=== PATIENT | male | born 1950 | race Caucasian/White ===

== ENCOUNTER → 2020-07-10 | Day surgery (SDC) | payer MEDICARE, BC ==
[2020-07-07 14:12] VITALS: BMI 28.6
[~2020-07-10] MED LIST: PROPOFOL 20 ML ONE
== END ==
LOC: CCL 05:44
PROVIDERS: ATTEND Internal Medicine Cardiovascular Disease
PROC: 5A2204Z Restoration of Cardiac Rhythm, Single (ICD-10-PCS; principal; 2020-07-10)
DX: I48.19 Other persistent atrial fibrillation (principal); I10 Essential (primary) hypertension; E78.5 Hyperlipidemia, unspecified; E03.9 Hypothyroidism, unspecified; I69.320 Aphasia following cerebral infarction; I49.5 Sick sinus syndrome; Z79.01 Long term (current) use of anticoagulants; Z79.899 Other long term (current) drug therapy
CPT/HCPCS: 92960; 93005; 93010; J2704

== ENCOUNTER 2020-08-07 08:27 | Outpatient (CLI) | payer MEDICARE, BC ==
[2020-08-07 09:43] LABS: Hemoglobin 13.7 g/dL (13.5-17.5); Mean Corpuscular Hemoglobin 31.5 pg (27.0-33.0); Mean Corpuscular Volume 89.9 fl (81.2-95.1); Mean Platelet Volume 9.2 fl (7.4-10.4); Platelet Count 282 10x3/uL (150-450); RBC Distribution Width 12.3 % (11.5-14.5); Red Blood Cell (RBC) Count 4.35 10x6/uL (4.32-5.72); White Blood Cell (WBC) Count 5.8 10x3/uL (3.5-10.5)
[2020-08-07 10:06] LABS: ALT (SGPT) 13 U/L (8-55); AST (SGOT) 23 U/L (5-34); Albumin 4.3 g/dL (3.4-4.8); Alkaline Phosphatase 51 U/L (40-110); Anion Gap 15 mmol/L (10-20); BUN (Urea Nitrogen) 8 mg/dL (8.4-25.7); Bilirubin, Total 0.5 mg/dL (0.2-1.2); Calc. Creatinine Clearance 0 mL/min (70-130); Carbon Dioxide 31 mmol/L (23-31); Chloride 85 mmol/L (98-107); Globulin 2.5 g/dL (2.4-3.5); Glucose 90 mg/dL (80-115); Potassium 3.6 mmol/L (3.5-5.1); Protein, Total 6.8 g/dL (5.8-8.1); Sodium 127 mmol/L (136-145)
[2020-08-07 10:35] LABS: INR-International Normal Ratio 1.1; Prothrombin Time 11.8 sec (9.5-12.1)
[2020-08-07 17:45] LABS: SARS-CoV-2 PCR by NAA Not Detected (NotDetected)
== END 2020-08-07 08:28 | disposition home or self-care (01) ==
LOC: LABBT 08:27
PROVIDERS: ATTEND Internal Medicine Cardiovascular Disease
DX: Z01.812 Encounter for preprocedural laboratory examination (principal); I48.19 Other persistent atrial fibrillation; Z20.822 Contact with and (suspected) exposure to COVID-19
CPT/HCPCS: 80053; 85027; 85610; U0003; U0005; 87635

== ENCOUNTER 2020-08-10 06:15 | Observation (INO) | payer MEDICARE, BC ==
[2020-08-10] MEDS ORDERED: Fentanyl 100 MCG/2 ML VIAL ONE (08:40)
[2020-08-10] MEDS ORDERED: Heparin 10,000 UNITS/ 10 ML VIAL ONE ×2 (08:41→10:56)
[2020-08-10] MEDS ORDERED: Lidocaine 1% (PF) 30 ML VIAL ONE (08:44)
[2020-08-10] MEDS ORDERED: HYDROcodone/Acetaminophen 5/325 mg Tablet PO PRN (09:10)
[2020-08-10] MEDS ORDERED: Acetaminophen 500 MG TAB PO PRN (09:12)
[2020-08-10] MEDS ORDERED: Calcium Carbonate 500 MG ChewTAB PO PRN (09:12)
[2020-08-10] MEDS ORDERED: hydrALAZINE 20 MG/ML VIAL SLOW IVP PRN (09:12)
[2020-08-10] MEDS ORDERED: Benzonatate 100 MG CAP PO PRN (09:12)
[2020-08-10] MEDS ORDERED: Ondansetron PF 4 MG/2 ML Vial IVP PRN (09:12)
[2020-08-10] MEDS ORDERED: Cepastat Lozenges 1 LOZ PO PRN (09:12)
[2020-08-10] MEDS ORDERED: Heparin 25,000 units/D5W 500 ML ONE (09:43)
[2020-08-10] MEDS ORDERED: Lidocaine 1% PF 5 ML VIAL ONE (09:57)
[2020-08-10] MEDS ORDERED: Ondansetron PF 4 MG/2 ML Vial ONE (09:57)
[2020-08-10] MEDS ORDERED: Rocuronium Bromide 10 MG/ML (10ML VIAL) ONE (09:57)
[2020-08-10] MEDS ORDERED: Dexamethasone 20 MG/5 ML VIAL ONE (09:57)
[2020-08-10] MEDS ORDERED: PHENYLEPHRINE-NS 100 MCG/ML 10 ML SYRINGE ONE (09:57)
[2020-08-10] MEDS ORDERED: PROPOFOL 200 MG/20 ML VIAL ONE (09:57)
[2020-08-10] MEDS ORDERED: ePHEDrine 50 MG/ML VIAL ONE (09:57)
[2020-08-10] MEDS ORDERED: SUGAMMADEX SODIUM 200 MG/2 ML VIAL ONE (11:53)
[2020-08-10] MEDS ORDERED: Protamine Sulfate 50 MG/5 ML VIAL ONE (11:53)
[2020-08-10] MEDS ORDERED: Rivaroxaban 10 MG TAB PO SCH (17:00)
[2020-08-10 17:44] VITALS: BMI 28.3
[2020-08-10] MEDS: Mirtazapine 30 MG TAB PO SCH (20:06)
[2020-08-10] MEDS: Flecainide 50 MG TAB PO SCH (20:07)
[2020-08-10] MEDS ORDERED: Divalproex Sodium 250 MG (DR) TAB PO SCH (21:00)
[2020-08-10] MEDS ORDERED: clonazePAM 1 MG TAB PO SCH (21:00)
[2020-08-11 04:53] LABS: Hemoglobin 11.6 g/dL (14.0-18.0); Platelet Count 210 thou/uL (130-400)
[2020-08-11] MEDS ORDERED: Levothyroxine Sodium 125 MCG TAB PO SCH (06:00)
[2020-08-11 08:02] VITALS: BP 125/74; TEMP 98.1
[2020-08-11] MEDS: Flecainide 50 MG TAB PO SCH (08:02)
[2020-08-11] MEDS ORDERED: Gabapentin 100 MG CAP PO SCH (09:00)
[2020-08-11] MEDS ORDERED: FLU VACC QS2020-21(65YR UP)/PF 240 MCG/0.7 ML SYRINGE IM ONE (09:00)
== END 2020-08-11 10:49 | disposition home or self-care (01) ==
LOC: CCL 06:15 → 2NO 12:46
PROVIDERS: ADMIT Internal Medicine Cardiovascular Disease; ATTEND Internal Medicine Cardiovascular Disease
PROC: 02583ZZ Destruction of Conduction Mechanism, Percutaneous Approach (ICD-10-PCS; principal; 2020-08-10)
PROC: 4A023FZ Measurement of Cardiac Rhythm, Percutaneous Approach (ICD-10-PCS; 2020-08-10)
PROC: 4A0234Z Measurement of Cardiac Electrical Activity, Percutaneous Approach (ICD-10-PCS; 2020-08-10)
PROC: 02K83ZZ Map Conduction Mechanism, Percutaneous Approach (ICD-10-PCS; 2020-08-10)
DX: I48.0 Paroxysmal atrial fibrillation (principal); R60.9 Edema, unspecified; E87.1 Hypo-osmolality and hyponatremia; Z79.01 Long term (current) use of anticoagulants; Z79.899 Other long term (current) drug therapy
CPT/HCPCS: 76942; 85014; 85018; 85049; 85347; 92960; 93005; 93613; 93656; 93657; 93662; C1730; C1732; C1753; C1894; C2630; 36415; G0378; J1100; J1644; J2001; J2405; J2704; J2720; J3010; J3490

== ENCOUNTER 2020-09-20 10:27 | Day surgery (SDC) | payer MEDICARE, BC ==
[2020-09-20 13:29] LABS: Pleural Fluid, Amylase Less than 30 U/L (Not Available); Pleural Fluid, Glucose 93 mg/dL; Pleural Fluid, LDH 99 U/L (Not Available); Pleural Fluid, Protein 2.4 g/dL
[2020-09-20 14:45] LABS: RBC Count-Automated (BF) 758 /cu.mm; WBC/Nucleated-Auto (BF) 715 uL
[2020-09-20 15:01] LABS: Body Fluid Source Pleural Fluid; Tube # EDTA
[2020-09-20 15:02] LABS: BF Color Yellow; Clarity Hazy (Clear)
[2020-09-20 15:11] LABS: BF Segmented Neutrophils 12 %; Cell Count Non Hematic 44 %; Lymphocytes 44 %
== END 2020-09-20 13:00 | disposition home or self-care (01) ==
LOC: SDC/OP 10:27
PROVIDERS: ATTEND Internal Medicine Critical Care Medicine
PROC: 0W9B3ZZ Drainage of Left Pleural Cavity, Percutaneous Approach (ICD-10-PCS; principal; 2020-09-20)
DX: J90 Pleural effusion, not elsewhere classified (principal); E03.9 Hypothyroidism, unspecified; N40.0 Benign prostatic hyperplasia without lower urinary tract symptoms; R56.9 Unspecified convulsions; I42.9 Cardiomyopathy, unspecified; Z79.01 Long term (current) use of anticoagulants; Z79.899 Other long term (current) drug therapy
CPT/HCPCS: 32554; 82150; 82945; 83615; 84157; 85060; 87070; 87205; 88112; 88305; 89051; J1642

== ENCOUNTER 2021-01-31 09:59 | Inpatient (IN) | payer MEDICARE, BC ==
[~2021-01-31 09:59] MED LIST changes: +Iopamidol-370 76% 500 ML 1 ML ONE; -PROPOFOL 20 ML ONE
[2021-01-31 10:52] LABS: #Basophils 0.1 thou/uL (0.0-0.2); #Eosinphils 0.3 thou/uL (0.0-0.7); #Lymphocytes 1.5 thou/uL (1.20-3.40); #Monocytes 0.8 thou/uL (0.11-0.59); #Neutrophils 4.8 thou/uL (1.40-6.50); %Eosinophils 3.4 % (0.0-10.0); %Lymphocytes 20.1 % (21.0-51.0); %Monocytes 11.4 % (0.0-10.0); %Neutrophils 64.1 % (42.0-75.0); Mean Corpuscular HGB CONC 35.5 g/dL (32.0-36.0); Mean Corpuscular Volume 98.4 fL (78.0-98.0); Mean Platelet Volume 6.8 fL (7.4-10.4); Platelet Count 240 thou/uL (130-400); RBC Distribution Width 11.4 % (11.5-14.5); Red Blood Cell (RBC) Count 3.99 mill/uL (4.70-6.10); White Blood Cell (WBC) Count 7.4 thou/uL (4.8-10.8)
[2021-01-31 11:07] LABS: INR-International Normal Ratio 1.1; Prothrombin Time 14.1 sec (12.0-14.7)
[2021-01-31 11:21] LABS: ALT (SGPT) 10 U/L (8-55); AST (SGOT) 16 U/L (5-34); Albumin 4.2 g/dL (3.4-4.8); Alkaline Phosphatase 63 U/L (40-110); Anion Gap 16 mmol/L (10-20); BUN (Urea Nitrogen) 9 mg/dL (8.4-25.7); Bilirubin, Total 0.5 mg/dL (0.2-1.2); Calc. Creatinine Clearance 0 mL/min (70-130); Calcium 9.4 mg/dL (7.8-10.44); Carbon Dioxide 23 mmol/L (23-31); Chloride 98 mmol/L (98-107); Globulin 2.6 g/dL (2.4-3.5); Glucose 109 mg/dL (80-115); Protein, Total 6.8 g/dL (5.8-8.1); Sodium 133 mmol/L (136-145)
[2021-01-31 11:59] LABS: CKMB 2.9 ng/mL (0-6.6)
[2021-01-31] MEDS ORDERED: Aspirin Chewable 81 MG TAB ONE (12:21)
[2021-01-31 14:46] LABS: SARS-CoV-2 NAA Rapid Test Not Detected (NotDetected)
[2021-01-31] MEDS ORDERED: Bisacodyl 10 MG SUPP PR PRN (18:37)
[2021-01-31] MEDS ORDERED: Acetaminophen 325 MG TAB PO PRN (18:37)
[2021-01-31] MEDS ORDERED: Ondansetron PF 4 MG/2 ML Vial IVP PRN (18:37)
[2021-01-31] MEDS ORDERED: Acetaminophen 650 MG Suppository PR PRN (18:37)
[2021-01-31] MEDS ORDERED: Labetalol HCl 100 MG/20 ML VIAL SLOW IVP PRN (18:37)
[2021-01-31] MEDS ORDERED: hydrALAZINE 20 MG/ML VIAL SLOW IVP PRN (18:37)
[2021-01-31 19:49] LABS: Troponin I 0.599 ng/mL (< 0.028)
[2021-01-31] MEDS ORDERED: Atorvastatin Calcium 20 MG TAB PO SCH (21:00)
[2021-01-31] MEDS: Furosemide 20 MG TAB PO SCH (22:00)
[2021-01-31] MEDS: Divalproex Sodium DR 500 MG TAB PO SCH (22:00)
[2021-01-31] MEDS: Flecainide 50 MG TAB PO SCH (22:00)
[2021-02-01 01:00] VITALS: BMI 20.9
[2021-02-01 05:55] LABS: #Eosinphils 0.2 thou/uL (0.0-0.7); #Lymphocytes 1.6 thou/uL (1.20-3.40); #Monocytes 0.9 thou/uL (0.11-0.59); #Neutrophils 4.6 thou/uL (1.40-6.50); %Basophils 0.5 % (0.0-1.0); %Eosinophils 2.1 % (0.0-10.0); %Lymphocytes 22.4 % (21.0-51.0); %Monocytes 11.7 % (0.0-10.0); %Neutrophils 63.3 % (42.0-75.0); Mean Corpuscular Hemoglobin 34.3 pg (27.0-31.0); Mean Corpuscular Volume 98.1 fL (78.0-98.0); Platelet Count 240 thou/uL (130-400); RBC Distribution Width 11.4 % (11.5-14.5); Red Blood Cell (RBC) Count 4.08 mill/uL (4.70-6.10); White Blood Cell (WBC) Count 7.3 thou/uL (4.8-10.8)
[2021-02-01] MEDS: Levothyroxine Sodium 125 MCG TAB PO SCH (06:04)
[2021-02-01 06:12] LABS: Anion Gap 12 mmol/L (10-20); BUN (Urea Nitrogen) 6 mg/dL (8.4-25.7); Calc. Creatinine Clearance 103 mL/min (70-130); Calcium 9.1 mg/dL (7.8-10.44); Carbon Dioxide 26 mmol/L (23-31); Cardiac Risk 4.5 (Less than 4.5); Chloride 97 mmol/L (98-107); Cholesterol 221 mg/dl (< 200 Desired); Glucose 94 mg/dL (80-115); HDL Cholesterol 49 mg/dL (>60 Neg Risk); LDL Cholesterol, Calculated 159 mg/dL; Potassium 3.6 mmol/L (3.5-5.1); Sodium 131 mmol/L (136-145); Triglycerides 67 mg/dL (Less than 150)
[2021-02-01 06:22] LABS: Troponin I 0.636 ng/mL (< 0.028)
[2021-02-01 09:42] LABS: Troponin I 0.637 ng/mL (< 0.028)
[2021-02-01] MEDS: Flecainide 50 MG TAB PO SCH ×2 (10:49→21:43)
[2021-02-01] MEDS: Divalproex Sodium DR 500 MG TAB PO SCH ×2 (10:49→21:43)
[2021-02-01] MEDS: Aspirin 325 mg Enteric Coated Tablet PO SCH (10:49)
[2021-02-01] MEDS: Gabapentin 100 MG CAP PO SCH (10:50)
[2021-02-01] MEDS: Furosemide 20 MG TAB PO SCH ×2 (10:50→21:43)
[2021-02-01] MEDS: Atorvastatin Calcium 40 MG TAB PO SCH (21:43)
[2021-02-02] MEDS: Levothyroxine Sodium 125 MCG TAB PO SCH (05:30)
[2021-02-02] MEDS: Gabapentin 100 MG CAP PO SCH (09:28)
[2021-02-02] MEDS: Flecainide 50 MG TAB PO SCH ×2 (09:28→20:57)
[2021-02-02] MEDS: Aspirin 325 mg Enteric Coated Tablet PO SCH (09:28)
[2021-02-02] MEDS: Divalproex Sodium DR 500 MG TAB PO SCH ×2 (09:28→20:56)
[2021-02-02] MEDS: Furosemide 20 MG TAB PO SCH ×2 (09:28→20:57)
[2021-02-02 15:50] LABS: Anion Gap 14 mmol/L (10-20); BUN (Urea Nitrogen) 16 mg/dL (8.4-25.7); Calc. Creatinine Clearance 88 mL/min (70-130); Calcium 9.4 mg/dL (7.8-10.44); Carbon Dioxide 26 mmol/L (23-31); Chloride 98 mmol/L (98-107); Glucose 91 mg/dL (80-115); Potassium 4.2 mmol/L (3.5-5.1); Sodium 134 mmol/L (136-145)
[2021-02-02] MEDS: Atorvastatin Calcium 40 MG TAB PO SCH (20:56)
[2021-02-03 05:47] LABS: #Basophils 0.1 thou/uL (0.0-0.2); #Eosinphils 0.3 thou/uL (0.0-0.7); #Lymphocytes 2.1 thou/uL (1.20-3.40); #Monocytes 0.9 thou/uL (0.11-0.59); #Neutrophils 3.3 thou/uL (1.40-6.50); %Basophils 0.9 % (0.0-1.0); %Eosinophils 4.3 % (0.0-10.0); %Lymphocytes 30.9 % (21.0-51.0); %Monocytes 14.1 % (0.0-10.0); %Neutrophils 49.8 % (42.0-75.0); Hemoglobin 14.2 g/dL (14.0-18.0); Mean Corpuscular HGB CONC 34.6 g/dL (32.0-36.0); Mean Corpuscular Hemoglobin 34.3 pg (27.0-31.0); Mean Corpuscular Volume 99.2 fL (78.0-98.0); Mean Platelet Volume 7.1 fL (7.4-10.4); Platelet Count 246 thou/uL (130-400); RBC Distribution Width 11.4 % (11.5-14.5); Red Blood Cell (RBC) Count 4.14 mill/uL (4.70-6.10); White Blood Cell (WBC) Count 6.6 thou/uL (4.8-10.8)
[2021-02-03 06:09] LABS: Anion Gap 13 mmol/L (10-20); BUN (Urea Nitrogen) 15 mg/dL (8.4-25.7); Calc. Creatinine Clearance 96 mL/min (70-130); Carbon Dioxide 27 mmol/L (23-31); Chloride 98 mmol/L (98-107); Glucose 90 mg/dL (80-115); Potassium 3.6 mmol/L (3.5-5.1); Sodium 134 mmol/L (136-145)
[2021-02-03] MEDS: Levothyroxine Sodium 125 MCG TAB PO SCH (06:14)
[2021-02-03] MEDS: Divalproex Sodium DR 500 MG TAB PO SCH ×2 (09:04→20:51)
[2021-02-03] MEDS: Aspirin 325 mg Enteric Coated Tablet PO SCH (09:04)
[2021-02-03] MEDS: Flecainide 50 MG TAB PO SCH ×2 (09:04→20:51)
[2021-02-03] MEDS: Furosemide 20 MG TAB PO SCH ×2 (09:05→20:51)
[2021-02-03] MEDS: Gabapentin 100 MG CAP PO SCH (09:05)
[2021-02-03] MEDS: Atorvastatin Calcium 40 MG TAB PO SCH (20:51)
[2021-02-04] MEDS: Levothyroxine Sodium 125 MCG TAB PO SCH (05:39)
[2021-02-04 05:49] LABS: #Basophils 0.1 thou/uL (0.0-0.2); #Eosinphils 0.3 thou/uL (0.0-0.7); #Lymphocytes 2.4 thou/uL (1.20-3.40); #Monocytes 0.8 thou/uL (0.11-0.59); #Neutrophils 3.9 thou/uL (1.40-6.50); %Basophils 1.1 % (0.0-1.0); %Eosinophils 4.7 % (0.0-10.0); %Lymphocytes 31.4 % (21.0-51.0); %Monocytes 10.7 % (0.0-10.0); %Neutrophils 52.2 % (42.0-75.0); Hemoglobin 13.6 g/dL (14.0-18.0); Mean Corpuscular HGB CONC 34.3 g/dL (32.0-36.0); Mean Corpuscular Hemoglobin 33.9 pg (27.0-31.0); Mean Platelet Volume 7.1 fL (7.4-10.4); Platelet Count 262 thou/uL (130-400); RBC Distribution Width 11.3 % (11.5-14.5); Red Blood Cell (RBC) Count 4.02 mill/uL (4.70-6.10); White Blood Cell (WBC) Count 7.5 thou/uL (4.8-10.8)
[2021-02-04 06:11] LABS: Anion Gap 9 mmol/L (10-20); BUN (Urea Nitrogen) 16 mg/dL (8.4-25.7); Calc. Creatinine Clearance 90 mL/min (70-130); Calcium 8.8 mg/dL (7.8-10.44); Carbon Dioxide 31 mmol/L (23-31); Chloride 96 mmol/L (98-107); Glucose 90 mg/dL (80-115); Magnesium 1.8 mg/dL (1.6-2.6); Potassium 3.6 mmol/L (3.5-5.1); Sodium 132 mmol/L (136-145)
[2021-02-04] MEDS: Aspirin 325 mg Enteric Coated Tablet PO SCH (09:31)
[2021-02-04] MEDS: Flecainide 50 MG TAB PO SCH ×2 (09:33→20:44)
[2021-02-04] MEDS: Furosemide 20 MG TAB PO SCH ×2 (09:33→20:44)
[2021-02-04] MEDS: Gabapentin 100 MG CAP PO SCH (09:34)
[2021-02-04] MEDS: Divalproex Sodium 125 mg Sprinkle Capsule PO SCH ×2 (10:53→20:44)
[2021-02-04] MEDS: Divalproex Sodium DR 500 MG TAB PO SCH (11:03)
[2021-02-04] MEDS: Atorvastatin Calcium 40 MG TAB PO SCH (20:44)
[2021-02-05] MEDS: Levothyroxine Sodium 125 MCG TAB PO SCH (05:17)
[2021-02-05] MEDS: Flecainide 50 MG TAB PO SCH (08:26)
[2021-02-05] MEDS: Gabapentin 100 MG CAP PO SCH (08:27)
[2021-02-05] MEDS: Divalproex Sodium 125 mg Sprinkle Capsule PO SCH (08:27)
[2021-02-05] MEDS: Furosemide 20 MG TAB PO SCH (08:27)
[2021-02-05] MEDS ORDERED: Pantoprazole 40 MG GRANULES PACKET PO SCH (09:00)
[2021-02-05] MEDS ORDERED: Aspirin 325 MG TAB PO SCH (09:00)
[2021-02-05 15:49] VITALS: BP 99/61; TEMP 97.8
== END 2021-02-05 16:48 | DRG 64 ==
LOC: ERS 09:59 → ERHOLD 12:13 → 3SE 20:18
PROVIDERS: ADMIT Emergency Medicine; ATTEND Family Medicine
DX: I63.511 Cerebral infarction due to unspecified occlusion or stenosis of right middle cerebral artery (principal); I21.A1 Myocardial infarction type 2; E87.1 Hypo-osmolality and hyponatremia; G81.94 Hemiplegia, unspecified affecting left nondominant side; I42.2 Other hypertrophic cardiomyopathy; I69.951 Hemiplegia and hemiparesis following unspecified cerebrovascular disease affecting right dominant side; Z20.822 Contact with and (suspected) exposure to COVID-19; G40.909 Epilepsy, unspecified, not intractable, without status epilepticus; I48.0 Paroxysmal atrial fibrillation; I10 Essential (primary) hypertension; R47.1 Dysarthria and anarthria; R47.01 Aphasia; G93.89 Other specified disorders of brain; E03.9 Hypothyroidism, unspecified; R29.715 NIHSS score 15; Z79.899 Other long term (current) drug therapy; Z79.01 Long term (current) use of anticoagulants; Z79.890 Hormone replacement therapy; Z95.0 Presence of cardiac pacemaker
CPT/HCPCS: 36415; 36416; 70450; 70496; 70498; 70551; 71045; 80048; 80053; 80061; 82553; 83735; 84484; 85025; 85610; 85730; 93005; 93306; 94760; 95712; 95819; 95957; Q9967; U0002; U0005

== ENCOUNTER 2021-04-02 11:22 | Inpatient (IN) | payer MEDICARE, BC ==
[2021-04-02 12:08] LABS: #Basophils 0.1 thou/uL (0.0-0.2); #Eosinphils 0.1 thou/uL (0.0-0.7); #Lymphocytes 1.6 thou/uL (1.20-3.40); #Monocytes 0.8 thou/uL (0.11-0.59); #Neutrophils 4.1 thou/uL (1.40-6.50); %Basophils 1.4 % (0.0-1.0); %Eosinophils 1.7 % (0.0-10.0); %Lymphocytes 24.1 % (21.0-51.0); %Monocytes 12.3 % (0.0-10.0); %Neutrophils 60.6 % (42.0-75.0); Hemoglobin 13.9 g/dL (14.0-18.0); Mean Corpuscular HGB CONC 34.5 g/dL (32.0-36.0); Mean Corpuscular Hemoglobin 33.8 pg (27.0-31.0); Mean Corpuscular Volume 97.9 fL (78.0-98.0); Mean Platelet Volume 6.7 fL (7.4-10.4); Platelet Count 253 thou/uL (130-400); RBC Distribution Width 12.4 % (11.5-14.5); Red Blood Cell (RBC) Count 4.12 mill/uL (4.70-6.10); White Blood Cell (WBC) Count 6.8 thou/uL (4.8-10.8)
[2021-04-02 12:24] LABS: ALT (SGPT) 11 U/L (8-55); AST (SGOT) 22 U/L (5-34); Alkaline Phosphatase 61 U/L (40-110); Anion Gap 13 mmol/L (10-20); BUN (Urea Nitrogen) 12 mg/dL (8.4-25.7); Bilirubin, Total 0.5 mg/dL (0.2-1.2); Calc. Creatinine Clearance 0 mL/min (70-130); Calcium 9.2 mg/dL (7.8-10.44); Carbon Dioxide 25 mmol/L (23-31); Chloride 99 mmol/L (98-107); Globulin 2.5 g/dL (2.4-3.5); Glucose 92 mg/dL (80-115); Potassium 4.2 mmol/L (3.5-5.1); Protein, Total 6.5 g/dL (5.8-8.1); Sodium 133 mmol/L (136-145)
[2021-04-02 12:46] LABS: INR-International Normal Ratio 1.8; PTT 34.2 sec (22.9-36.1); Prothrombin Time 21.2 sec (12.0-14.7)
[2021-04-02 13:29] LABS: CKMB 6.3 ng/mL (0-6.6)
[2021-04-02] MEDS ORDERED: hydrALAZINE 20 MG/ML VIAL SLOW IVP PRN (14:15)
[2021-04-02] MEDS ORDERED: Senokot S 8.6-50 MG TAB PO PRN (14:15)
[2021-04-02] MEDS ORDERED: Nitroglycerin 0.4 MG TAB (25 Tab Bottle) SL PRN (14:20)
[2021-04-02 16:08] LABS: Troponin I 0.182 ng/mL (< 0.028)
[2021-04-02 16:50] VITALS: BMI 21.2
[2021-04-02] MEDS ORDERED: cloNIDine 0.1 MG TAB PO PRN (18:30)
[2021-04-02] MEDS: Sodium Chloride 0.9% 1,000 ML IV SCH (18:32)
[2021-04-02 18:53] LABS: Troponin I 0.186 ng/mL (< 0.028)
[2021-04-02] MEDS: Mirtazapine 30 MG TAB PO SCH (21:28)
[2021-04-02] MEDS: Divalproex Sodium DR 500 MG TAB PO SCH ×2 (21:28→23:16)
[2021-04-02] MEDS: Atorvastatin Calcium 40 MG TAB PO SCH (21:28)
[2021-04-02] MEDS: Donepezil HCl 5 MG TAB PO SCH (21:28)
[2021-04-02] MEDS: Flecainide 50 MG TAB PO SCH (21:28)
[2021-04-02 23:49] LABS: SARS-CoV-2 PCR by NAA Not Detected (NotDetected)
[2021-04-02] MEDS: Valproate Sodium 500 MG in Sodium Chloride 0.9% 100 ML IVPB SCH (23:51)
[2021-04-03] MEDS: Sodium Chloride 0.9% 1,000 ML IV SCH (03:22)
[2021-04-03 05:48] LABS: Anion Gap 13 mmol/L (10-20); BUN (Urea Nitrogen) 7 mg/dL (8.4-25.7); Calc. Creatinine Clearance 103 mL/min (70-130); Calcium 8.5 mg/dL (7.8-10.44); Carbon Dioxide 22 mmol/L (23-31); Cardiac Risk 3.6 (Less than 4.5); Chloride 102 mmol/L (98-107); Cholesterol 143 mg/dl (< 200 Desired); Glucose 88 mg/dL (80-115); HDL Cholesterol 40 mg/dL (>60 Neg Risk); LDL Cholesterol, Calculated 91 mg/dL; Potassium 4.2 mmol/L (3.5-5.1); Sodium 133 mmol/L (136-145); Triglycerides 58 mg/dL (Less than 150)
[2021-04-03] MEDS: Levothyroxine Sodium 125 MCG TAB PO SCH (06:02)
[2021-04-03 09:10] LABS: #Basophils 0.1 thou/uL (0.0-0.2); #Eosinphils 0.1 thou/uL (0.0-0.7); #Lymphocytes 1.8 thou/uL (1.20-3.40); #Monocytes 0.6 thou/uL (0.11-0.59); #Neutrophils 2.6 thou/uL (1.40-6.50); %Basophils 1.1 % (0.0-1.0); %Eosinophils 2.3 % (0.0-10.0); %Lymphocytes 34.1 % (21.0-51.0); %Monocytes 12.4 % (0.0-10.0); %Neutrophils 50.2 % (42.0-75.0); Hemoglobin 12.3 g/dL (14.0-18.0); Mean Corpuscular HGB CONC 35.5 g/dL (32.0-36.0); Mean Corpuscular Hemoglobin 34.6 pg (27.0-31.0); Mean Corpuscular Volume 97.2 fL (78.0-98.0); Mean Platelet Volume 7.1 fL (7.4-10.4); Platelet Count 236 thou/uL (130-400); RBC Distribution Width 12.5 % (11.5-14.5); Red Blood Cell (RBC) Count 3.57 mill/uL (4.70-6.10); White Blood Cell (WBC) Count 5.2 thou/uL (4.8-10.8)
[2021-04-03] MEDS: Potassium Chloride 20 MEQ TAB PO SCH (09:25)
[2021-04-03] MEDS: Gabapentin 100 MG CAP PO SCH (09:25)
[2021-04-03] MEDS: Flecainide 50 MG TAB PO SCH ×2 (09:26→20:10)
[2021-04-03] MEDS: Aspirin 325 MG TAB PO SCH (09:26)
[2021-04-03] MEDS: Divalproex Sodium DR 500 MG TAB PO SCH ×2 (09:41→10:20)
[2021-04-03] MEDS: Valproate Sodium 500 MG in Sodium Chloride 0.9% 100 ML IVPB SCH ×3 (10:00→20:10)
[2021-04-03] MEDS: Rivaroxaban 10 MG TAB PO SCH (18:12)
[2021-04-03] MEDS: Mirtazapine 30 MG TAB PO SCH (20:10)
[2021-04-03] MEDS: Atorvastatin Calcium 40 MG TAB PO SCH (20:10)
[2021-04-03] MEDS: Donepezil HCl 5 MG TAB PO SCH (20:10)
[2021-04-04] MEDS: Levothyroxine Sodium 125 MCG TAB PO SCH (05:05)
[2021-04-04] MEDS: Aspirin 325 MG TAB PO SCH (09:10)
[2021-04-04] MEDS: Flecainide 50 MG TAB PO SCH (09:11)
[2021-04-04] MEDS: Valproate Sodium 500 MG in Sodium Chloride 0.9% 100 ML IVPB SCH (09:11)
[2021-04-04] MEDS: Potassium Chloride 20 MEQ TAB PO SCH (09:11)
[2021-04-04] MEDS: Gabapentin 100 MG CAP PO SCH (09:11)
[2021-04-04 16:27] VITALS: BP 111/63; TEMP 98
[2021-04-04] MEDS: Rivaroxaban 10 MG TAB PO SCH (18:07)
== END 2021-04-04 18:34 | DRG 312 ==
LOC: ERS 11:22 → 2NO 13:31
PROVIDERS: ADMIT Family Medicine; ATTEND Internal Medicine
DX: R55 Syncope and collapse (principal); E87.1 Hypo-osmolality and hyponatremia; I48.20 Chronic atrial fibrillation, unspecified; Z20.822 Contact with and (suspected) exposure to COVID-19; G40.909 Epilepsy, unspecified, not intractable, without status epilepticus; R77.8 Other specified abnormalities of plasma proteins; F32.A Depression, unspecified; E03.9 Hypothyroidism, unspecified; I69.320 Aphasia following cerebral infarction; Z79.01 Long term (current) use of anticoagulants; Z79.899 Other long term (current) drug therapy; Z79.890 Hormone replacement therapy; Z79.82 Long term (current) use of aspirin; Z98.890 Other specified postprocedural states
CPT/HCPCS: 36415; 36416; 70450; 70551; 80048; 80053; 80061; 82553; 84443; 84484; 85025; 85610; 85730; 93005; 95712; 95819; 95957; J3490; J7050; U0003; U0005

== ENCOUNTER 2021-12-04 18:47 | Inpatient (IN) | payer MEDICARE, BC ==
[2021-12-04] MEDS ORDERED: Cefepime 2 GM VIAL ONE (19:30)
[2021-12-04 19:39] LABS: #Lymphocytes 2.3 thou/uL (1.20-3.40); #Monocytes 2.1 thou/uL (0.11-0.59); #Neutrophils 11.9 thou/uL (1.40-6.50); %Basophils 0.3 % (0.0-1.0); %Eosinophils 0.2 % (0.0-10.0); %Lymphocytes 14.1 % (21.0-51.0); %Monocytes 12.6 % (0.0-10.0); %Neutrophils 72.7 % (42.0-75.0); Hemoglobin 13.3 g/dL (14.0-18.0); Mean Corpuscular Hemoglobin 34.8 pg (27.0-31.0); Mean Platelet Volume 8.2 fL (7.4-10.4); Platelet Count 173 thou/uL (130-400); RBC Distribution Width 12.8 % (11.5-14.5); Red Blood Cell (RBC) Count 3.83 mill/uL (4.70-6.10); White Blood Cell (WBC) Count 16.3 thou/uL (4.8-10.8)
[2021-12-04 20:07] LABS: ALT (SGPT) 12 U/L (8-55); AST (SGOT) 32 U/L (5-34); Albumin 3.4 g/dL (3.4-4.8); Alkaline Phosphatase 60 U/L (40-110); Anion Gap 13 mmol/L (10-20); BUN (Urea Nitrogen) 24 mg/dL (8.4-25.7); Bilirubin, Total 0.7 mg/dL (0.2-1.2); Calc. Creatinine Clearance 0 mL/min (70-130); Calcium 8.7 mg/dL (7.8-10.44); Carbon Dioxide 26 mmol/L (23-31); Chloride 105 mmol/L (98-107); Estimated GFR 95; Globulin 2.9 g/dL (2.4-3.5); Glucose 118 mg/dL (80-115); Potassium 3.7 mmol/L (3.5-5.1); Protein, Total 6.3 g/dL (5.8-8.1); Sodium 140 mmol/L (136-145)
[2021-12-04 20:13] LABS: Bilirubin Negative (Negative); Blood, Urine Negative (Negative); Clarity Clear (Clear); Glucose, Urine (Dipstick) Normal (Negative); Ketone, Urine Trace mg/dL (Negative); Leukocyte Negative Leu/uL (Negative); Nitrite Negative (Negative); Protein, Urine (Dipstick) 20 mg/dL (Neg-Trace); Specific Gravity, Urine 1.027 (1.002-1.036); Urobilinogen Normal mg/dL (Less than 2)
[2021-12-04] MEDS ORDERED: Vancomycin 1 GM/200 ML BAG ONE (20:21)
[2021-12-04 21:11] LABS: SARS-CoV-2 NAA Rapid Test DETECTED (NotDetected)
[2021-12-04] MEDS ORDERED: Sodium Chloride 0.9% 1,000 ML IV SCH ×2 (22:00→23:37)
[2021-12-04] MEDS ORDERED: Acetaminophen 325 MG TAB PO PRN (22:00)
[2021-12-04] MEDS ORDERED: Ondansetron PF 4 MG/2 ML Vial IVP PRN (22:00)
[2021-12-04] MEDS ORDERED: Ondansetron ODT 4 MG TAB SL PRN (22:00)
[2021-12-04] MEDS ORDERED: Senokot S 8.6-50 MG TAB PO PRN (22:34)
[2021-12-04] MEDS ORDERED: Guaifenesin DM 100-10/5 ML UDCUP PO PRN (22:34)
[2021-12-04] MEDS ORDERED: Acetaminophen 650 MG Suppository PR PRN (22:34)
[2021-12-04] MEDS ORDERED: Acetaminophen 325 MG TAB ONE (23:28)
[2021-12-04] MEDS ORDERED: Acetaminophen 650 MG Suppository ONE (23:35)
[2021-12-05] MEDS ORDERED: Divalproex Sodium DR 500 MG TAB PO SCH ×2 (00:30→09:00)
[2021-12-05] MEDS ORDERED: Zinc Sulfate 220 MG CAP PO SCH (00:30)
[2021-12-05] MEDS ORDERED: Ascorbic Acid 500 mg Chewable Tablet PO SCH (00:30)
[2021-12-05] MEDS ORDERED: Donepezil HCl 5 MG TAB PO SCH (00:30)
[2021-12-05] MEDS ORDERED: Cholecalciferol (Vitamin D3) 400 UNITS TAB PO SCH (00:30)
[2021-12-05] MEDS ORDERED: Enoxaparin Sodium 40 MG/0.4 ML SYRINGE SC SCH (01:15)
[2021-12-05] MEDS ORDERED: Valproate Sodium 500 MG in Sodium Chloride 0.9% 100 ML IVPB SCH ×2 (01:15→09:00)
[2021-12-05] MEDS ORDERED: Norepinephrine 8 MG/0.9% NS 0 ML ONE (04:28)
[2021-12-05] MEDS ORDERED: Norepinephrine 8 MG/0.9% NS 250 ML IVPB SCH (04:30)
[2021-12-05 04:32] LABS: #Basophils 0.1 thou/uL (0.0-0.2); #Lymphocytes 2.1 thou/uL (1.20-3.40); #Monocytes 1.8 thou/uL (0.11-0.59); #Neutrophils 8.2 thou/uL (1.40-6.50); %Basophils 0.6 % (0.0-1.0); %Eosinophils 0.2 % (0.0-10.0); %Lymphocytes 16.9 % (21.0-51.0); %Monocytes 14.6 % (0.0-10.0); %Neutrophils 67.7 % (42.0-75.0); Hemoglobin 11.2 g/dL (14.0-18.0); Mean Corpuscular HGB CONC 33.2 g/dL (32.0-36.0); Mean Corpuscular Hemoglobin 34.1 pg (27.0-31.0); Mean Platelet Volume 8.2 fL (7.4-10.4); Platelet Count 142 thou/uL (130-400); RBC Distribution Width 12.8 % (11.5-14.5); White Blood Cell (WBC) Count 12.1 thou/uL (4.8-10.8)
[2021-12-05 05:02] LABS: ALT (SGPT) 10 U/L (8-55); AST (SGOT) 26 U/L (5-34); Albumin 2.8 g/dL (3.4-4.8); Alkaline Phosphatase 47 U/L (40-110); Anion Gap 12 mmol/L (10-20); BUN (Urea Nitrogen) 22 mg/dL (8.4-25.7); Bilirubin, Total 0.6 mg/dL (0.2-1.2); Calc. Creatinine Clearance 100 mL/min (70-130); Calcium 7.8 mg/dL (7.8-10.44); Carbon Dioxide 23 mmol/L (23-31); Chloride 109 mmol/L (98-107); Estimated GFR 101; Globulin 2.4 g/dL (2.4-3.5); Glucose 100 mg/dL (80-115); Potassium 3.7 mmol/L (3.5-5.1); Protein, Total 5.2 g/dL (5.8-8.1); Sodium 140 mmol/L (136-145)
[2021-12-05] MEDS ORDERED: Rivaroxaban 10 MG TAB PO SCH (09:00)
[2021-12-05] MEDS ORDERED: Flecainide 50 MG TAB PO SCH (09:00)
[2021-12-05] MEDS ORDERED: Pantoprazole 40 MG VIAL ONE (10:30)
[2021-12-05] MEDS: Pantoprazole 40 MG VIAL IVP SCH (10:43)
[2021-12-05] MEDS ORDERED: Sodium Chloride 0.9% 1,000 ML IV SCH (12:00)
[2021-12-05] MEDS: Vancomycin 1 GM in Premix Bag 1 BAG IVPB SCH ×2 (17:14→19:50)
[2021-12-05] MEDS: Enoxaparin Sodium 40 MG/0.4 ML SYRINGE SC SCH (17:56)
[2021-12-05] MEDS: Valproate Sodium 500 MG in Sodium Chloride 0.9% 100 ML IVPB SCH (19:42)
[2021-12-05] MEDS: Zinc Sulfate 220 MG CAP PO SCH (19:46)
[2021-12-05] MEDS: Ascorbic Acid 500 mg Chewable Tablet PO SCH (19:46)
[2021-12-05] MEDS: Cholecalciferol (Vitamin D3) 400 UNITS TAB PO SCH (19:46)
[2021-12-05] MEDS: Cefepime 2 GM in Sodium Chloride 0.9% 100 ML IVPB SCH ×2 (19:46→20:59)
[2021-12-05] MEDS: Donepezil HCl 5 MG TAB PO SCH (20:58)
[2021-12-05] MEDS: Flecainide 50 MG TAB PO SCH (20:58)
[2021-12-06] MEDS: Valproate Sodium 500 MG in Sodium Chloride 0.9% 100 ML IVPB SCH (05:04)
[2021-12-06] MEDS: Vancomycin 1 GM in Premix Bag 1 BAG IVPB SCH (05:06)
[2021-12-06] MEDS: Levothyroxine Sodium 125 MCG TAB PO SCH (05:06)
[2021-12-06 05:12] LABS: ALT (SGPT) 10 U/L (8-55); AST (SGOT) 24 U/L (5-34); Albumin 2.8 g/dL (3.4-4.8); Alkaline Phosphatase 47 U/L (40-110); Anion Gap 13 mmol/L (10-20); BUN (Urea Nitrogen) 20 mg/dL (8.4-25.7); Bilirubin, Total 0.5 mg/dL (0.2-1.2); Calc. Creatinine Clearance 107 mL/min (70-130); Calcium 8.1 mg/dL (7.8-10.44); Carbon Dioxide 21 mmol/L (23-31); Chloride 108 mmol/L (98-107); Estimated GFR 103; Globulin 2.5 g/dL (2.4-3.5); Glucose 94 mg/dL (80-115); Potassium 3.6 mmol/L (3.5-5.1); Protein, Total 5.3 g/dL (5.8-8.1); Sodium 138 mmol/L (136-145)
[2021-12-06 05:47] LABS: Band 4 % (5-11); Eosinophils 1 % (0-10); Hemoglobin 11.4 g/dL (14.0-18.0); Lymphocytes 17 % (21-51); MDiff Complete? YES; Macrocytosis SLIGHT = 6-15 cells (100X) (0-5/hpf); Mean Corpuscular HGB CONC 32.3 g/dL (32.0-36.0); Mean Corpuscular Hemoglobin 33.8 pg (27.0-31.0); Mean Platelet Volume 8.4 fL (7.4-10.4); Monocytes 14 % (0-10); Neutrophil 64 % (42-75); Platelet Count 129 thou/uL (130-400); RBC Distribution Width 12.5 % (11.5-14.5); Red Blood Cell (RBC) Count 3.36 mill/uL (4.70-6.10); White Blood Cell (WBC) Count 11.6 thou/uL (4.8-10.8)
[2021-12-06 06:43] LABS: Vancomycin, Trough 7.9 ug/mL
[2021-12-06] MEDS: Cholecalciferol (Vitamin D3) 400 UNITS TAB PO SCH (08:34)
[2021-12-06] MEDS: Flecainide 50 MG TAB PO SCH ×2 (08:34→21:46)
[2021-12-06] MEDS: Cefepime 2 GM in Sodium Chloride 0.9% 100 ML IVPB SCH ×2 (08:34→21:46)
[2021-12-06] MEDS: Zinc Sulfate 220 MG CAP PO SCH (08:34)
[2021-12-06] MEDS: Ascorbic Acid 500 mg Chewable Tablet PO SCH (08:34)
[2021-12-06] MEDS: Pantoprazole 40 MG VIAL IVP SCH (08:35)
[2021-12-06] MEDS: Enoxaparin Sodium 40 MG/0.4 ML SYRINGE SC SCH (17:41)
[2021-12-06] MEDS ORDERED: VANCOMYCIN 1.25 GM/250 ML BAG 1.25 GM in Premix Bag 1 BAG IVPB SCH (18:00)
[2021-12-06] MEDS ORDERED: Divalproex Sodium DR 500 MG TAB PO SCH (21:00)
[2021-12-06] MEDS: Donepezil HCl 5 MG TAB PO SCH (21:46)
[2021-12-06] MEDS ORDERED: Divalproex Sodium 125 mg Sprinkle Capsule PO SCH (22:30)
[2021-12-07] MEDS: Levothyroxine Sodium 125 MCG TAB PO SCH (05:42)
[2021-12-07] MEDS: Cefepime 2 GM in Sodium Chloride 0.9% 100 ML IVPB SCH ×2 (10:31→21:32)
[2021-12-07] MEDS: Ascorbic Acid 500 mg Chewable Tablet PO SCH (10:31)
[2021-12-07] MEDS: Divalproex Sodium 125 mg Sprinkle Capsule PO SCH ×2 (10:32→21:35)
[2021-12-07] MEDS: Zinc Sulfate 220 MG CAP PO SCH (10:33)
[2021-12-07] MEDS: Flecainide 50 MG TAB PO SCH ×2 (10:33→21:35)
[2021-12-07] MEDS: Pantoprazole 40 MG VIAL IVP SCH (10:34)
[2021-12-07] MEDS: Cholecalciferol (Vitamin D3) 400 UNITS TAB PO SCH (10:37)
[2021-12-07] MEDS: Enoxaparin Sodium 40 MG/0.4 ML SYRINGE SC SCH ×2 (18:37→21:36)
[2021-12-07] MEDS: Donepezil HCl 5 MG TAB PO SCH (21:35)
[2021-12-08 04:55] LABS: #Eosinphils 0.1 thou/uL (0.0-0.7); #Lymphocytes 2.5 thou/uL (1.20-3.40); #Monocytes 0.9 thou/uL (0.11-0.59); #Neutrophils 4.2 thou/uL (1.40-6.50); %Basophils 0.5 % (0.0-1.0); %Eosinophils 1.3 % (0.0-10.0); %Lymphocytes 32.6 % (21.0-51.0); %Neutrophils 54.6 % (42.0-75.0); Hemoglobin 11.1 g/dL (14.0-18.0); Mean Corpuscular HGB CONC 34.5 g/dL (32.0-36.0); Mean Platelet Volume 8.1 fL (7.4-10.4); Platelet Count 179 thou/uL (130-400); RBC Distribution Width 12.4 % (11.5-14.5); Red Blood Cell (RBC) Count 3.18 mill/uL (4.70-6.10); White Blood Cell (WBC) Count 7.7 thou/uL (4.8-10.8)
[2021-12-08 05:10] LABS: ALT (SGPT) 13 U/L (8-55); AST (SGOT) 23 U/L (5-34); Albumin 2.9 g/dL (3.4-4.8); Alkaline Phosphatase 48 U/L (40-110); Anion Gap 11 mmol/L (10-20); BUN (Urea Nitrogen) 14 mg/dL (8.4-25.7); Bilirubin, Total 0.4 mg/dL (0.2-1.2); CRP (Inflammatory) 2.74 mg/dL (= or < 0.5); Calc. Creatinine Clearance 114 mL/min (70-130); Calcium 8.4 mg/dL (7.8-10.44); Carbon Dioxide 26 mmol/L (23-31); Chloride 105 mmol/L (98-107); Estimated GFR 105; Globulin 2.5 g/dL (2.4-3.5); Glucose 97 mg/dL (80-115); Protein, Total 5.4 g/dL (5.8-8.1); Sodium 139 mmol/L (136-145)
[2021-12-08] MEDS: Levothyroxine Sodium 125 MCG TAB PO SCH (05:48)
[2021-12-08] MEDS: Potassium Chloride 20 MEQ in Premix Bag 1 BAG IVPB SCH ×2 (10:07→13:13)
[2021-12-08] MEDS: Divalproex Sodium 125 mg Sprinkle Capsule PO SCH ×2 (10:08→20:13)
[2021-12-08] MEDS: Zinc Sulfate 220 MG CAP PO SCH (10:08)
[2021-12-08] MEDS: Cholecalciferol (Vitamin D3) 400 UNITS TAB PO SCH (10:09)
[2021-12-08] MEDS: Ascorbic Acid 500 mg Chewable Tablet PO SCH (10:09)
[2021-12-08] MEDS: Pantoprazole 40 MG VIAL IVP SCH (10:09)
[2021-12-08] MEDS: Flecainide 50 MG TAB PO SCH ×2 (10:09→20:13)
[2021-12-08] MEDS: Cefepime 2 GM in Sodium Chloride 0.9% 100 ML IVPB SCH ×2 (10:16→20:11)
[2021-12-08 13:28] LABS: Anion Gap 11 mmol/L (10-20); BUN (Urea Nitrogen) 14 mg/dL (8.4-25.7); Calc. Creatinine Clearance 103 mL/min (70-130); Calcium 8.3 mg/dL (7.8-10.44); Carbon Dioxide 24 mmol/L (23-31); Chloride 105 mmol/L (98-107); Estimated GFR 102; Glucose 111 mg/dL (80-115); Potassium 3.8 mmol/L (3.5-5.1); Sodium 136 mmol/L (136-145)
[2021-12-08] MEDS: Donepezil HCl 5 MG TAB PO SCH (20:13)
[2021-12-08] MEDS: Enoxaparin Sodium 40 MG/0.4 ML SYRINGE SC SCH (20:13)
[2021-12-09 05:27] LABS: Anion Gap 11 mmol/L (10-20); BUN (Urea Nitrogen) 14 mg/dL (8.4-25.7); CRP (Inflammatory) 1.35 mg/dL (= or < 0.5); Calc. Creatinine Clearance 120 mL/min (70-130); Calcium 8.3 mg/dL (7.8-10.44); Carbon Dioxide 25 mmol/L (23-31); Chloride 105 mmol/L (98-107); Estimated GFR 107; Glucose 96 mg/dL (80-115); Magnesium 1.9 mg/dL (1.6-2.6); Potassium 3.4 mmol/L (3.5-5.1); Sodium 138 mmol/L (136-145)
[2021-12-09] MEDS: Levothyroxine Sodium 125 MCG TAB PO SCH (05:50)
[2021-12-09 07:27] LABS: #Basophils 0.1 thou/uL (0.0-0.2); #Eosinphils 0.1 thou/uL (0.0-0.7); #Lymphocytes 2.5 thou/uL (1.20-3.40); #Neutrophils 4.4 thou/uL (1.40-6.50); %Basophils 1.2 % (0.0-1.0); %Eosinophils 1.7 % (0.0-10.0); %Lymphocytes 31.1 % (21.0-51.0); %Monocytes 12.1 % (0.0-10.0); Hemoglobin 11.2 g/dL (14.0-18.0); Mean Corpuscular HGB CONC 34.2 g/dL (32.0-36.0); Mean Corpuscular Hemoglobin 34.9 pg (27.0-31.0); Mean Platelet Volume 7.3 fL (7.4-10.4); Platelet Count 201 thou/uL (130-400); RBC Distribution Width 12.3 % (11.5-14.5); Red Blood Cell (RBC) Count 3.21 mill/uL (4.70-6.10); White Blood Cell (WBC) Count 8.1 thou/uL (4.8-10.8)
[2021-12-09] MEDS: Cefepime 2 GM in Sodium Chloride 0.9% 100 ML IVPB SCH ×2 (08:56→21:08)
[2021-12-09] MEDS: Divalproex Sodium 125 mg Sprinkle Capsule PO SCH ×2 (08:56→21:12)
[2021-12-09] MEDS: Cholecalciferol (Vitamin D3) 400 UNITS TAB PO SCH (08:56)
[2021-12-09] MEDS: Ascorbic Acid 500 mg Chewable Tablet PO SCH (08:56)
[2021-12-09] MEDS: Flecainide 50 MG TAB PO SCH ×2 (08:56→21:10)
[2021-12-09] MEDS: Zinc Sulfate 220 MG CAP PO SCH (08:56)
[2021-12-09] MEDS: Pantoprazole 40 MG VIAL IVP SCH (08:57)
[2021-12-09] MEDS: Potassium Chloride 20 MEQ in Premix Bag 1 BAG IVPB SCH ×3 (08:59→15:07)
[2021-12-09] MEDS: Gabapentin 100 MG CAP PO SCH (21:09)
[2021-12-09] MEDS: Mirtazapine 30 MG TAB PO SCH (21:09)
[2021-12-09] MEDS: Donepezil HCl 5 MG TAB PO SCH (21:10)
[2021-12-09] MEDS: Enoxaparin Sodium 40 MG/0.4 ML SYRINGE SC SCH (21:10)
[2021-12-10] MEDS: Levothyroxine Sodium 125 MCG TAB PO SCH (00:46)
[2021-12-10 04:32] LABS: #Basophils 0.1 thou/uL (0.0-0.2); #Eosinphils 0.2 thou/uL (0.0-0.7); #Lymphocytes 3.2 thou/uL (1.20-3.40); #Monocytes 0.8 thou/uL (0.11-0.59); #Neutrophils 3.9 thou/uL (1.40-6.50); %Basophils 0.7 % (0.0-1.0); %Eosinophils 1.9 % (0.0-10.0); %Lymphocytes 39.1 % (21.0-51.0); %Monocytes 10.4 % (0.0-10.0); %Neutrophils 47.9 % (42.0-75.0); Hemoglobin 10.8 g/dL (14.0-18.0); Mean Corpuscular HGB CONC 34.4 g/dL (32.0-36.0); Mean Corpuscular Hemoglobin 35.5 pg (27.0-31.0); Mean Platelet Volume 7.6 fL (7.4-10.4); Platelet Count 221 thou/uL (130-400); RBC Distribution Width 12.5 % (11.5-14.5); Red Blood Cell (RBC) Count 3.03 mill/uL (4.70-6.10); White Blood Cell (WBC) Count 8.1 thou/uL (4.8-10.8)
[2021-12-10 04:55] LABS: Anion Gap 11 mmol/L (10-20); BUN (Urea Nitrogen) 13 mg/dL (8.4-25.7); CK (CPK) 119 U/L (30-200); CRP (Inflammatory) 0.89 mg/dL (= or < 0.5); Calc. Creatinine Clearance 110 mL/min (70-130); Calcium 8.3 mg/dL (7.8-10.44); Carbon Dioxide 27 mmol/L (23-31); Chloride 104 mmol/L (98-107); Estimated GFR 104; Glucose 94 mg/dL (80-115); Potassium 3.3 mmol/L (3.5-5.1); Sodium 139 mmol/L (136-145)
[2021-12-10] MEDS: Flecainide 50 MG TAB PO SCH ×2 (09:36→22:45)
[2021-12-10] MEDS: Divalproex Sodium 125 mg Sprinkle Capsule PO SCH ×2 (09:36→22:45)
[2021-12-10] MEDS: Pantoprazole 40 MG VIAL IVP SCH (09:36)
[2021-12-10] MEDS: Ascorbic Acid 500 mg Chewable Tablet PO SCH (09:36)
[2021-12-10] MEDS: Cholecalciferol (Vitamin D3) 400 UNITS TAB PO SCH (09:36)
[2021-12-10] MEDS: Gabapentin 100 MG CAP PO SCH ×3 (09:36→22:45)
[2021-12-10] MEDS: Zinc Sulfate 220 MG CAP PO SCH (09:37)
[2021-12-10] MEDS ORDERED: Potassium Chloride 40 MEQ in Sodium Chloride 0.9% 250 ML 250 ML IVPB SCH (16:00)
[2021-12-10] MEDS: Enoxaparin Sodium 40 MG/0.4 ML SYRINGE SC SCH (22:44)
[2021-12-10] MEDS: Donepezil HCl 5 MG TAB PO SCH (22:45)
[2021-12-10] MEDS: Mirtazapine 30 MG TAB PO SCH (22:45)
[2021-12-11] MEDS: Levothyroxine Sodium 125 MCG TAB PO SCH (07:35)
[2021-12-11] MEDS: Gabapentin 100 MG CAP PO SCH ×3 (08:50→19:59)
[2021-12-11] MEDS: Flecainide 50 MG TAB PO SCH ×2 (08:50→19:59)
[2021-12-11] MEDS: Ascorbic Acid 500 mg Chewable Tablet PO SCH (08:50)
[2021-12-11] MEDS: Cholecalciferol (Vitamin D3) 400 UNITS TAB PO SCH (08:50)
[2021-12-11] MEDS: Divalproex Sodium 125 mg Sprinkle Capsule PO SCH ×2 (08:50→19:59)
[2021-12-11] MEDS: Zinc Sulfate 220 MG CAP PO SCH (08:51)
[2021-12-11 09:15] LABS: #Basophils 0.1 thou/uL (0.0-0.2); #Eosinphils 0.2 thou/uL (0.0-0.7); #Lymphocytes 1.8 thou/uL (1.20-3.40); #Monocytes 0.6 thou/uL (0.11-0.59); #Neutrophils 4.4 thou/uL (1.40-6.50); %Basophils 0.8 % (0.0-1.0); %Lymphocytes 25.3 % (21.0-51.0); %Monocytes 8.8 % (0.0-10.0); %Neutrophils 62.1 % (42.0-75.0); Hemoglobin 11.6 g/dL (14.0-18.0); Mean Corpuscular HGB CONC 33.1 g/dL (32.0-36.0); Mean Corpuscular Hemoglobin 34.2 pg (27.0-31.0); Mean Platelet Volume 6.8 fL (7.4-10.4); Platelet Count 280 thou/uL (130-400); RBC Distribution Width 12.7 % (11.5-14.5); White Blood Cell (WBC) Count 7.2 thou/uL (4.8-10.8)
[2021-12-11 09:36] LABS: Anion Gap 16 mmol/L (10-20); BUN (Urea Nitrogen) 11 mg/dL (8.4-25.7); Calc. Creatinine Clearance 107 mL/min (70-130); Calcium 8.7 mg/dL (7.8-10.44); Carbon Dioxide 22 mmol/L (23-31); Chloride 105 mmol/L (98-107); Estimated GFR 103; Glucose 83 mg/dL (80-115); Magnesium 1.8 mg/dL (1.6-2.6); Potassium 4.1 mmol/L (3.5-5.1); Sodium 139 mmol/L (136-145)
[2021-12-11] MEDS: Pantoprazole 40 MG VIAL IVP SCH (10:09)
[2021-12-11] MEDS ORDERED: D5W-AA 4.25% with LYTES 1,000 ML IV SCH ×2 (16:15)
[2021-12-11] MEDS: Donepezil HCl 5 MG TAB PO SCH (19:59)
[2021-12-11] MEDS: Mirtazapine 30 MG TAB PO SCH (19:59)
[2021-12-11] MEDS: Enoxaparin Sodium 40 MG/0.4 ML SYRINGE SC SCH (20:40)
[2021-12-12] MEDS: Levothyroxine Sodium 125 MCG TAB PO SCH (05:05)
[2021-12-12] MEDS: Cholecalciferol (Vitamin D3) 400 UNITS TAB PO SCH (08:43)
[2021-12-12] MEDS: Ascorbic Acid 500 mg Chewable Tablet PO SCH (08:43)
[2021-12-12] MEDS: Divalproex Sodium 125 mg Sprinkle Capsule PO SCH ×2 (08:44→20:57)
[2021-12-12] MEDS: Gabapentin 100 MG CAP PO SCH ×3 (08:44→20:58)
[2021-12-12] MEDS: Pantoprazole 40 MG VIAL IVP SCH (08:45)
[2021-12-12] MEDS: Zinc Sulfate 220 MG CAP PO SCH (08:46)
[2021-12-12] MEDS: Flecainide 50 MG TAB PO SCH ×2 (10:44→20:57)
[2021-12-12] MEDS: Enoxaparin Sodium 40 MG/0.4 ML SYRINGE SC SCH (20:57)
[2021-12-12] MEDS: Mirtazapine 30 MG TAB PO SCH (20:57)
[2021-12-12] MEDS: Donepezil HCl 5 MG TAB PO SCH (20:58)
[2021-12-12] MEDS: Morphine 2 MG/ML VIAL SLOW IVP PRN (20:58)
[2021-12-13] MEDS: Morphine 2 MG/ML VIAL SLOW IVP PRN ×3 (06:02→20:21)
[2021-12-13] MEDS: Levothyroxine Sodium 125 MCG TAB PO SCH (06:09)
[2021-12-13] MEDS: Pantoprazole 40 MG VIAL IVP SCH (08:56)
[2021-12-13] MEDS: Cholecalciferol (Vitamin D3) 400 UNITS TAB PO SCH (09:00)
[2021-12-13] MEDS: Ascorbic Acid 500 mg Chewable Tablet PO SCH (09:00)
[2021-12-13] MEDS: Zinc Sulfate 220 MG CAP PO SCH (09:01)
[2021-12-13] MEDS: Gabapentin 100 MG CAP PO SCH ×3 (09:01→20:13)
[2021-12-13] MEDS: Divalproex Sodium 125 mg Sprinkle Capsule PO SCH ×2 (09:01→20:18)
[2021-12-13] MEDS: Flecainide 50 MG TAB PO SCH ×2 (09:01→20:13)
[2021-12-13] MEDS ORDERED: Sodium Chloride 0.9% 500 ML IV SCH ×2 (12:15→13:00)
[2021-12-13] MEDS: D5W-AA 4.25% with LYTES 1,000 ML IV SCH (12:38)
[2021-12-13] MEDS: Albumin 25% 25 GM/100 ML BOT IVPB SCH ×2 (13:13→18:11)
[2021-12-13] MEDS: Donepezil HCl 5 MG TAB PO SCH (20:13)
[2021-12-13] MEDS: Enoxaparin Sodium 40 MG/0.4 ML SYRINGE SC SCH (20:13)
[2021-12-13] MEDS: Mirtazapine 30 MG TAB PO SCH (20:13)
[2021-12-13] MEDS: Lorazepam 2 MG/ML VIAL SLOW IVP PRN (22:57)
[2021-12-14] MEDS: Albumin 25% 25 GM/100 ML BOT IVPB SCH ×2 (01:14→08:55)
[2021-12-14] MEDS: D5W-AA 4.25% with LYTES 1,000 ML IV SCH ×2 (02:05→15:55)
[2021-12-14] MEDS: Levothyroxine Sodium 125 MCG TAB PO SCH (05:09)
[2021-12-14] MEDS: Pantoprazole 40 MG VIAL IVP SCH (08:55)
[2021-12-14] MEDS: Ascorbic Acid 500 mg Chewable Tablet PO SCH (09:35)
[2021-12-14] MEDS: Zinc Sulfate 220 MG CAP PO SCH (09:36)
[2021-12-14] MEDS: Cholecalciferol (Vitamin D3) 400 UNITS TAB PO SCH (09:36)
[2021-12-14] MEDS: Flecainide 50 MG TAB PO SCH ×2 (09:36→21:45)
[2021-12-14] MEDS: Gabapentin 100 MG CAP PO SCH ×3 (09:36→21:46)
[2021-12-14] MEDS: Divalproex Sodium 125 mg Sprinkle Capsule PO SCH ×2 (09:36→21:45)
[2021-12-14] MEDS: Mirtazapine 30 MG TAB PO SCH (21:45)
[2021-12-14] MEDS: Enoxaparin Sodium 40 MG/0.4 ML SYRINGE SC SCH (21:46)
[2021-12-14] MEDS: Donepezil HCl 5 MG TAB PO SCH (21:47)
[2021-12-15] MEDS: D5W-AA 4.25% with LYTES 1,000 ML IV SCH ×2 (04:21→17:18)
[2021-12-15] MEDS: Levothyroxine Sodium 125 MCG TAB PO SCH (05:32)
[2021-12-15] MEDS: Gabapentin 100 MG CAP PO SCH ×3 (10:16→22:47)
[2021-12-15] MEDS: Divalproex Sodium 125 mg Sprinkle Capsule PO SCH ×2 (10:16→22:46)
[2021-12-15] MEDS: Cholecalciferol (Vitamin D3) 400 UNITS TAB PO SCH (10:16)
[2021-12-15] MEDS: Ascorbic Acid 500 mg Chewable Tablet PO SCH (10:16)
[2021-12-15] MEDS: Flecainide 50 MG TAB PO SCH ×2 (10:16→22:47)
[2021-12-15] MEDS: Zinc Sulfate 220 MG CAP PO SCH (10:17)
[2021-12-15] MEDS: Pantoprazole 40 MG VIAL IVP SCH (10:37)
[2021-12-15] MEDS: Donepezil HCl 5 MG TAB PO SCH (22:46)
[2021-12-15] MEDS: Mirtazapine 30 MG TAB PO SCH (22:47)
[2021-12-15] MEDS: Enoxaparin Sodium 40 MG/0.4 ML SYRINGE SC SCH (22:52)
[2021-12-16] MEDS: D5W-AA 4.25% with LYTES 1,000 ML IV SCH ×2 (06:34→21:54)
[2021-12-16] MEDS: Levothyroxine Sodium 125 MCG TAB PO SCH (06:35)
[2021-12-16] MEDS: Divalproex Sodium 125 mg Sprinkle Capsule PO SCH ×2 (09:21→20:26)
[2021-12-16] MEDS: Zinc Sulfate 220 MG CAP PO SCH (09:21)
[2021-12-16] MEDS: Cholecalciferol (Vitamin D3) 400 UNITS TAB PO SCH (09:22)
[2021-12-16] MEDS: Ascorbic Acid 500 mg Chewable Tablet PO SCH (09:22)
[2021-12-16] MEDS: Flecainide 50 MG TAB PO SCH ×2 (09:22→20:30)
[2021-12-16] MEDS: Gabapentin 100 MG CAP PO SCH ×3 (09:22→20:30)
[2021-12-16] MEDS: Pantoprazole 40 MG VIAL IVP SCH (09:23)
[2021-12-16] MEDS: Enoxaparin Sodium 40 MG/0.4 ML SYRINGE SC SCH (20:17)
[2021-12-16] MEDS: Donepezil HCl 5 MG TAB PO SCH (20:30)
[2021-12-16] MEDS: Mirtazapine 30 MG TAB PO SCH (20:31)
[2021-12-17] MEDS: Levothyroxine Sodium 125 MCG TAB PO SCH (05:13)
[2021-12-17] MEDS: Flecainide 50 MG TAB PO SCH ×2 (08:55→20:46)
[2021-12-17] MEDS: Ascorbic Acid 500 mg Chewable Tablet PO SCH (08:56)
[2021-12-17] MEDS: Divalproex Sodium 125 mg Sprinkle Capsule PO SCH ×2 (08:57→20:46)
[2021-12-17] MEDS: Cholecalciferol (Vitamin D3) 400 UNITS TAB PO SCH (08:57)
[2021-12-17] MEDS: Gabapentin 100 MG CAP PO SCH ×3 (09:02→20:46)
[2021-12-17] MEDS: Zinc Sulfate 220 MG CAP PO SCH (09:03)
[2021-12-17] MEDS: Pantoprazole 40 MG VIAL IVP SCH (09:03)
[2021-12-17] MEDS: D5W-AA 4.25% with LYTES 1,000 ML IV SCH (11:55)
[2021-12-17] MEDS: Donepezil HCl 5 MG TAB PO SCH (20:46)
[2021-12-17] MEDS: Mirtazapine 30 MG TAB PO SCH (20:46)
[2021-12-17] MEDS: Morphine 2 MG/ML VIAL SLOW IVP PRN (23:08)
[2021-12-18] MEDS: Lorazepam 2 MG/ML VIAL SLOW IVP PRN (00:01)
[2021-12-18] MEDS: D5W-AA 4.25% with LYTES 1,000 ML IV SCH ×2 (01:10→17:34)
[2021-12-18] MEDS: Levothyroxine Sodium 125 MCG TAB PO SCH (05:03)
[2021-12-18] MEDS: Morphine 2 MG/ML VIAL SLOW IVP PRN (05:53)
[2021-12-18] MEDS: Gabapentin 100 MG CAP PO SCH ×3 (08:45→22:56)
[2021-12-18] MEDS: Divalproex Sodium 125 mg Sprinkle Capsule PO SCH ×2 (08:45→22:56)
[2021-12-18] MEDS: Flecainide 50 MG TAB PO SCH ×2 (08:45→22:55)
[2021-12-18] MEDS: Rivaroxaban 10 MG TAB PO SCH (08:45)
[2021-12-18] MEDS: Cholecalciferol (Vitamin D3) 400 UNITS TAB PO SCH (08:46)
[2021-12-18] MEDS: Zinc Sulfate 220 MG CAP PO SCH (08:46)
[2021-12-18] MEDS: Ascorbic Acid 500 mg Chewable Tablet PO SCH (08:46)
[2021-12-18 11:41] VITALS: BMI 18.8
[2021-12-18] MEDS: Pantoprazole 40 MG VIAL IVP SCH (12:25)
[2021-12-18] MEDS: Mirtazapine 30 MG TAB PO SCH (22:55)
[2021-12-18] MEDS: Donepezil HCl 5 MG TAB PO SCH (22:57)
[2021-12-19] MEDS: Gabapentin 100 MG CAP PO SCH ×4 (01:59→09:23)
[2021-12-19] MEDS: Divalproex Sodium 125 mg Sprinkle Capsule PO SCH ×3 (02:00→09:24)
[2021-12-19] MEDS: Flecainide 50 MG TAB PO SCH ×3 (02:00→09:25)
[2021-12-19] MEDS: Mirtazapine 30 MG TAB PO SCH (02:02)
[2021-12-19] MEDS: Donepezil HCl 5 MG TAB PO SCH (02:02)
[2021-12-19] MEDS: Levothyroxine Sodium 125 MCG TAB PO SCH (06:15)
[2021-12-19] MEDS: D5W-AA 4.25% with LYTES 1,000 ML IV SCH ×2 (06:15→07:40)
[2021-12-19] MEDS: Cholecalciferol (Vitamin D3) 400 UNITS TAB PO SCH ×2 (09:17→09:24)
[2021-12-19] MEDS: Pantoprazole 40 MG VIAL IVP SCH (09:17)
[2021-12-19] MEDS: Ascorbic Acid 500 mg Chewable Tablet PO SCH ×2 (09:17→09:24)
[2021-12-19] MEDS: Rivaroxaban 10 MG TAB PO SCH ×2 (09:17→09:25)
[2021-12-19] MEDS: Zinc Sulfate 220 MG CAP PO SCH ×2 (09:17→09:25)
[2021-12-19] MEDS: Morphine 2 MG/ML VIAL SLOW IVP PRN (09:29)
[2021-12-19 12:17] VITALS: BP 87/50; TEMP 98.5
== END 2021-12-19 12:46 | DRG 871 ==
LOC: ERS 18:47 → ERHOLD 21:41 → 2NO 12-05 15:30 → SJJU 12-15 23:48 → T4-A 12-18 15:40
PROVIDERS: ADMIT Family Medicine; ATTEND Family Medicine
PROC: 8E0ZXY6 Isolation (ICD-10-PCS; principal; 2021-12-04)
PROC: 3E03329 Introduction of Other Anti-infective into Peripheral Vein, Percutaneous Approach (ICD-10-PCS; 2021-12-04)
PROC: 3E033XZ Introduction of Vasopressor into Peripheral Vein, Percutaneous Approach (ICD-10-PCS; 2021-12-05)
DX: A41.89 Other specified sepsis (principal); U07.1 COVID-19; G93.41 Metabolic encephalopathy; N39.0 Urinary tract infection, site not specified; Z66 Do not resuscitate; Z51.5 Encounter for palliative care; G40.909 Epilepsy, unspecified, not intractable, without status epilepticus; I10 Essential (primary) hypertension; M54.50 Low back pain, unspecified; G89.29 Other chronic pain; E03.9 Hypothyroidism, unspecified; F32.A Depression, unspecified; E86.0 Dehydration; I48.0 Paroxysmal atrial fibrillation; R20.8 Other disturbances of skin sensation; R13.10 Dysphagia, unspecified; E87.6 Hypokalemia; I95.9 Hypotension, unspecified; Z79.899 Other long term (current) drug therapy; Z79.890 Hormone replacement therapy; Z79.01 Long term (current) use of anticoagulants; I69.920 Aphasia following unspecified cerebrovascular disease; Z74.01 Bed confinement status; Z79.82 Long term (current) use of aspirin; I69.991 Dysphagia following unspecified cerebrovascular disease
CPT/HCPCS: 36415; 36416; 51701; 70450; 71045; 80048; 80053; 80202; 81003; 82550; 83605; 83735; 84145; 85025; 86140; 87040; 87086; 93005; 96361; 96365; 96367; 97139; C9113; J0692; J1650; J2060; J2270; J3370; J3480; J3490; J7030; J7050; P9047